=== PATIENT | male | born 1985 | race African-American/Black ===

== ENCOUNTER 2021-12-26 17:12 | Emergency (ER) | payer SELFPAY ==
[~2021-12-26] VITALS: Ht 188 cm; Wt 95.0 kg
[2021-12-26] MEDS ORDERED: ALBUTEROL (0.083%) 2.5MG/3ML NEB HHN STA (18:42)
[2021-12-26] MEDS ORDERED: MAGNESIUM 2 G PREMIX 50 ML IV STA (18:42)
[2021-12-26] MEDS ORDERED: IPRATROPIUM BROMIDE (0.02%) 0.5MG/2.5ML NEB HHN STA (18:42)
[2021-12-26] MEDS ORDERED: METHYLPREDNISOLONE SOD SUCC 125 MG/2 ML VIAL IV STA (18:42)
[2021-12-26 19:45] VITALS: BP 141/94
[2021-12-26] MEDS ORDERED: PRED10TA MT (21:02)
[2021-12-26] MEDS ORDERED: ALBU6.7H9 INH (21:02)
== END 2021-12-26 21:14 | disposition home or self-care (01) ==
LOC: ER 17:12
DX: E88.01 Alpha-1-antitrypsin deficiency (principal); J44.9 Chronic obstructive pulmonary disease, unspecified; I44.0 Atrioventricular block, first degree; Z88.5 Allergy status to narcotic agent
CPT/HCPCS: 93005; 94644; 96365; 96375; 99285; J2930; J3475; Z7610